=== PATIENT | female | born 1980 | race Caucasian/White ===

== ENCOUNTER 2023-06-22 23:57 | Emergency (ER) | payer MEDICAID, OTHER ==
[~2023-06-22] VITALS: Ht 167.6 cm; Wt 104.0 kg
[2023-06-23 00:03] VITALS: BP 155/82; PULSE 87; RESP 16; TEMP 98.1; O2SAT 98
[2023-06-23 02:58] LABS: EOSINOPHILS % 1.9 % (0.0-5.0); HEMATOCRIT. 29.5 % (36.0-48.0); HEMOGLOBIN. 8.7 g/dL (12.0-16.0); LYMPHOCYTES % 27.1 % (20.0-50.0); MEAN CORPUSCULAR HEMOGLOBIN 17.1 pg (28.0-32.0); MEAN CORPUSCULAR HGB CONC 29.4 g/dL (31.0-37.0); MEAN CORPUSCULAR VOLUME 58.3 fL (81.0-99.0); MEAN PLATELET VOLUME 8.5 fl (7.4-10.4); MONOCYTES % 8.7 % (2.0-8.0); NEUTROPHILS % 61.3 % (40.0-76.0); PLATELET 369 x1000/uL (130-400); RED BLOOD CELL COUNT 5.07 mill/uL (4.2-5.4); RED CELL DISTRIBUTION WIDTH 20.8 % (11.6-14.6); WHITE BLOOD COUNT 9.2 x1000/uL (4.5-11.0)
[2023-06-23 03:04] LABS: ADD RBC MORPHOLOGY YES; DIFFERENTIAL COMMENT 1
[2023-06-23 03:11] LABS: CHLORIDE 110 mEq/L (98-107); INDEX HEMOLYSI 1 (1-3); INDEX ICTERIC 1 (1-4); INDEX LIPEMIC 1 (1-3); POTASSIUM 3.5 mEq/L (3.5-5.1); SODIUM 142 mEq/L (136-145)
[2023-06-23 03:20] LABS: ALANINE AMINOTRANSFERASE 95 IU/L (13-61); ALBUMIN 3.3 g/dL (3.4-5.0); ASPARTATE AMINOTRANSFERASE 59 IU/L (15-37); BILIRUBIN TOTAL 0.5 mg/dL (0.1-1.0); CARBON DIOXIDE 29 mEq/L (21-32); CREATININE 0.6 mg/dL (0.6-1.3); ETHANOL BLOOD < 10 mg/dL (-10); GLUCOSE 103 mg/dL (70-105); PROTEIN TOTAL 7.4 g/dL (6.0-8.3); UREA NITROGEN BLOOD 18 mg/dL (7-21)
[2023-06-23 07:57] LABS: HYPOCHROMASIA 2+; MICROCYTOSIS 2+; PLATELET ESTIMATE NORMAL
== END 2023-06-23 07:43 | disposition home or self-care (01) ==
LOC: ER 23:57
DX: M54.9 Dorsalgia, unspecified (principal); M25.512 Pain in left shoulder; R53.1 Weakness
CPT/HCPCS: 36415; 72100; 73030; 73562; 80053; 80320; 85025; 99284; G0480